=== PATIENT | male | born 1975 | race Caucasian/White ===

== ENCOUNTER 2016-10-23 14:56 | Emergency (ER) | payer MEDICAID | END 2016-10-23 19:29 | disposition home or self-care (01) | LOC: D.ER 14:56 | DX: M25.562 Pain in left knee (principal); F17.200 Nicotine dependence, unspecified, uncomplicated ==

== ENCOUNTER 2016-10-24 22:20 | Emergency (ER) | payer MEDICAID | END 2016-10-25 00:57 | disposition home or self-care (01) | LOC: D.ER 22:20 | DX: K08.89 Other specified disorders of teeth and supporting structures (principal); F17.200 Nicotine dependence, unspecified, uncomplicated ==

== ENCOUNTER 2016-12-08 20:47 | Emergency (ER) | payer MEDICAID | END 2016-12-08 23:49 | disposition home or self-care (01) | LOC: D.ER 20:47 | DX: G89.18 Other acute postprocedural pain (principal); F17.200 Nicotine dependence, unspecified, uncomplicated ==

== ENCOUNTER 2016-12-19 22:03 | Emergency (ER) | payer MEDICAID | END 2016-12-20 00:55 | disposition home or self-care (01) | LOC: D.ER 22:03 | DX: M25.562 Pain in left knee (principal); M25.462 Effusion, left knee; F17.200 Nicotine dependence, unspecified, uncomplicated ==

== ENCOUNTER 2017-02-17 21:13 | Emergency (ER) | payer MEDICAID | END 2017-02-18 01:10 | disposition left against medical advice (07) | LOC: D.ER 21:13 | DX: M25.512 Pain in left shoulder (principal) ==

== ENCOUNTER 2017-03-25 12:32 | Emergency (ER) | payer MEDICAID ==
[2017-03-25 13:58] LABS: APPEARANCE CLEAR (CLEAR); BILIRUBIN NEGATIVE (NEGATIVE); COLOR YELLOW (YELLOW); GLUCOSE NEGATIVE (NEGATIVE); KETONE NEGATIVE (NEGATIVE); LEUKOCYTE ESTERASE NEGATIVE (NEGATIVE); NITRITE NEGATIVE (NEGATIVE); PROTEIN NEGATIVE (NEGATIVE); SPECIFIC GRAVITY 1.025 (1.005-1.020); UROBILINOGEN NORMAL (NORMAL)
[2017-03-25 14:02] LABS: BASOPHILS 0.4 % (0-2); EOSINOPHILS 1.4 % (0-7); HEMATOCRIT 51.4 % (42.0-54.0); HEMOGLOBIN 17.5 g/dL (13.5-17.5); IMMATURE GRANULOCYTES 0.3 % (0-5); LYMPHOCYTES 31.4 % (15-50); MCH 33.3 pg (26.0-34.0); MCV 97.9 fL (80.0-100.0); MEAN PLATELET VOLUME 10.9 fL (7.4-10.4); MONOCYTES 8.9 % (2-11); NEUTROPHILS 57.6 % (40-80); PLATELET COUNT 261 10x3/uL (130-400); RBC 5.25 10x6/uL (4.20-6.10); RDW 13.9 % (11.5-14.5); WBC 9.1 10x3/uL (4.8-10.8)
[2017-03-25 14:16] LABS: ALBUMIN 3.5 g/dL (3.4-5.0); ALKALINE PHOSPHATASE 165 U/L (46-116); ALT (SGPT) 33 U/L (10-68); CALC OSMOLALITY 269 mosm/kg (275-300); CALCIUM 9.4 mg/dL (8.5-10.1); CARBON DIOXIDE 25.9 mmol/L (21.0-32.0); CHLORIDE - SERUM 101 mmol/L (98-107); GLUCOSE 87 mg/dL (74-106); POTASSIUM - SERUM 4.1 mmol/L (3.5-5.1); PROTEIN - SERUM 7.6 g/dL (6.4-8.2); SODIUM 135 mmol/L (136-145); UREA NITROGEN 14 mg/dL (7-18); eGFR NON AFRICAN AMERICAN 88 mL/min (90-120)
== END 2017-03-25 16:41 | disposition home or self-care (01) ==
LOC: D.ER 12:32
PROVIDERS: Emergency Medicine
DX: K40.90 Unilateral inguinal hernia, without obstruction or gangrene, not specified as recurrent (principal); F17.200 Nicotine dependence, unspecified, uncomplicated

== ENCOUNTER 2017-05-10 14:51 | Emergency (ER) | payer MEDICAID | END 2017-05-10 17:40 | disposition home or self-care (01) | LOC: D.ER 14:51 | DX: G89.18 Other acute postprocedural pain (principal) ==

== ENCOUNTER 2017-05-31 10:58 | Emergency (ER) | payer MEDICAID | END 2017-05-31 22:53 | disposition home or self-care (01) | LOC: D.ER 10:58 | DX: S61.214A Laceration without foreign body of right ring finger without damage to nail, initial encounter (principal); W55.41XA Bitten by pig, initial encounter; Y93.89 Activity, other specified; Y92.89 Other specified places as the place of occurrence of the external cause; F17.200 Nicotine dependence, unspecified, uncomplicated ==

== ENCOUNTER 2017-06-01 13:22 | Emergency (ER) | payer MEDICAID | END 2017-06-01 14:47 | disposition home or self-care (01) | LOC: D.ER 13:22 | DX: S61.254A Open bite of right ring finger without damage to nail, initial encounter (principal); W55.41XA Bitten by pig, initial encounter; Y93.89 Activity, other specified; Y92.89 Other specified places as the place of occurrence of the external cause; F17.200 Nicotine dependence, unspecified, uncomplicated ==

== ENCOUNTER 2017-10-12 22:28 | Emergency (ER) | payer MEDICAID ==
[2017-10-12 22:59] LABS: BASOPHILS 0.5 % (0-2); EOSINOPHILS 1.8 % (0-7); HEMATOCRIT 50.2 % (42.0-54.0); HEMOGLOBIN 17.3 g/dL (13.5-17.5); IMMATURE GRANULOCYTES 0.3 % (0-5); LYMPHOCYTES 39.8 % (15-50); MCH 33.6 pg (26.0-34.0); MCHC 34.5 g/dL (31.0-37.0); MCV 97.5 fL (80.0-100.0); MONOCYTES 8.1 % (2-11); NEUTROPHILS 49.5 % (40-80); PLATELET COUNT 292 10x3/uL (130-400); RBC 5.15 10x6/uL (4.20-6.10); RDW 13.7 % (11.5-14.5); WBC 10.1 10x3/uL (4.8-10.8)
[2017-10-12 23:08] LABS: APPEARANCE CLEAR (CLEAR); COLOR YELLOW (YELLOW); SPECIFIC GRAVITY 1.025 (1.005-1.020)
[2017-10-12 23:09] LABS: BILIRUBIN NEGATIVE (NEGATIVE); GLUCOSE NEGATIVE (NEGATIVE); KETONE NEGATIVE (NEGATIVE); NITRITE NEGATIVE (NEGATIVE); PROTEIN NEGATIVE (NEGATIVE); UROBILINOGEN NORMAL (NORMAL)
[2017-10-12 23:13] LABS: ALBUMIN 3.5 g/dL (3.4-5.0); ALKALINE PHOSPHATASE 177 U/L (46-116); ALT (SGPT) 33 U/L (10-68); AMYLASE - SERUM 113 U/L (25-115); CALC OSMOLALITY 289 mosm/kg (275-300); CALCIUM 9.5 mg/dL (8.5-10.1); CARBON DIOXIDE 30.5 mmol/L (21.0-32.0); CHLORIDE - SERUM 106 mmol/L (98-107); CREATININE - SERUM 1.1 mg/dL (0.6-1.3); GLUCOSE 101 mg/dL (74-106); LIPASE 481 U/L (73-393); POTASSIUM - SERUM 3.8 mmol/L (3.5-5.1); PROTEIN - SERUM 7.3 g/dL (6.4-8.2); SODIUM 145 mmol/L (136-145); UREA NITROGEN 16 mg/dL (7-18); eGFR NON AFRICAN AMERICAN 79 mL/min (90-120)
== END 2017-10-13 02:35 | disposition home or self-care (01) ==
LOC: D.ER 22:28
PROVIDERS: Family Medicine
DX: K85.90 Acute pancreatitis without necrosis or infection, unspecified (principal); F17.200 Nicotine dependence, unspecified, uncomplicated

== ENCOUNTER 2018-05-16 19:33 | Emergency (ER) | payer MEDICAID ==
[~2018-05-16] VITALS: Ht 180.3 cm; Wt 81.8 kg
[2018-05-16 19:41] VITALS: Ht 180.3 cm; Wt 81.8 kg
[2018-05-16] MEDS ORDERED: VOLTAREN75 MG PO (20:56)
[2018-05-16] MEDS ORDERED: AMOXICILLIN500 M1 PO (20:56)
[2018-05-16 22:29] VITALS: BP 124/74
== END 2018-05-16 21:45 | disposition home or self-care (01) ==
LOC: D.ER 19:33
DX: K04.7 Periapical abscess without sinus (principal); K08.89 Other specified disorders of teeth and supporting structures; F17.200 Nicotine dependence, unspecified, uncomplicated

== ENCOUNTER 2018-11-18 20:38 | Emergency (ER) | payer MEDICAID ==
[~2018-11-18] VITALS: Ht 180.3 cm; Wt 122.7 kg
[~2018-11-18 20:38] MED LIST: AMOXICILLIN500 M1 PO; VOLTAREN75 MG PO
[2018-11-18 20:52] VITALS: Ht 180.3 cm; Wt 122.7 kg
[2018-11-19] MEDS ORDERED: OMNICEF300 MG PO (01:21)
[2018-11-19 02:10] VITALS: BP 118/70
== END 2018-11-19 02:10 | disposition home or self-care (01) ==
LOC: D.ER 20:38
DX: J18.9 Pneumonia, unspecified organism (principal); R50.9 Fever, unspecified; M79.18 Myalgia, other site; F17.200 Nicotine dependence, unspecified, uncomplicated

== ENCOUNTER 2018-11-21 18:56 | Emergency (ER) | payer MEDICAID ==
[~2018-11-21] VITALS: Ht 180.3 cm; Wt 95.5 kg
[~2018-11-21 18:56] MED LIST changes: +OMNICEF300 MG PO
[2018-11-21 19:03] VITALS: Ht 180.3 cm; Wt 95.5 kg
[2018-11-21 20:40] VITALS: BP 112/69
== END 2018-11-21 20:40 | disposition home or self-care (01) ==
LOC: D.ER 18:56
DX: J18.9 Pneumonia, unspecified organism (principal); R09.89 Other specified symptoms and signs involving the circulatory and respiratory systems; F17.200 Nicotine dependence, unspecified, uncomplicated

== ENCOUNTER 2019-02-08 14:18 | Emergency (ER) | payer MEDICAID ==
[2019-02-08 14:20] VITALS: BMI 37.7
[2019-02-08] MEDS ORDERED: HYDROCODON-ACE1 EAC2 PO (15:27)
[2019-02-08 15:44] VITALS: BP 128/68
== END 2019-02-08 15:55 | disposition home or self-care (01) ==
LOC: D.ER 14:18
DX: S62.634B Displaced fracture of distal phalanx of right ring finger, initial encounter for open fracture (principal); W23.0XXA Caught, crushed, jammed, or pinched between moving objects, initial encounter; Y93.89 Activity, other specified; Y92.89 Other specified places as the place of occurrence of the external cause

== ENCOUNTER 2019-03-26 13:31 | Emergency (ER) | payer MEDICAID ==
[~2019-03-26] VITALS: Ht 180.3 cm; Wt 115.0 kg
[~2019-03-26 13:31] MED LIST changes: +HYDROCODON-ACE1 EAC2 PO
[2019-03-26 13:39] VITALS: Ht 180.3 cm; Wt 115.0 kg
[2019-03-26] MEDS ORDERED: BACTRIM 400-801 TAB PO (14:36)
[2019-03-26] MEDS ORDERED: VOLTAREN75 MG PO (14:36)
[2019-03-26 14:57] VITALS: BP 132/68
== END 2019-03-26 14:52 | disposition home or self-care (01) ==
LOC: D.ER 13:31
DX: L03.011 Cellulitis of right finger (principal)